=== PATIENT | female | born 1955 | race American Indian/Alaskan Native ===

== ENCOUNTER 2016-10-03 06:18 | Day surgery (SDC) | payer MEDICAID ==
[2016-10-03] MEDS ORDERED: WATER FOR IRRIG STERILE IR ONE (07:11)
--- NOTE | 2016-10-03 07:37 | Anesthesia Day of Surgery ---
Anesthesia Day of Surgery - Day of Surgery Patient Examined: Yes Patient H&P Reviewed: Yes Patient is NPO: Yes Beta Blockers: Yes
--- NOTE | 2016-10-03 07:39 | Anesthesia Consultation ---
Anesthesia Consult and Med Hx Date of service: 10/03/16 - Airway Anesthetic Teeth Evaluation: Good ROM Head & Neck: Adequate Mental/Hyoid Distance: Adequate Mallampati Class: Class I Intubation Access Assessment: Good - Pulmonary Exam CTA: Yes - Cardiac Exam Cardiac Exam: RRR - Pre-Operative Health Status ASA Pre-Surgery Classification: ASA3 Proposed Anesthetic Plan: MAC - Pulmonary Hx Smoking: Yes Hx Asthma: No COPD: No Hx Sleep Apnea: Yes (uses CPAP) - Cardiovascular System Hx Hypertension: Yes Hx Heart Attack/AMI: Yes (AUGUST 2006, no stents or invasive procedures) Hx Angina: No (denies) Hx Heart Murmur: No - Central Nervous System Hx Seizures: No Hx Back Pain: Yes Hx Psychiatric Problems: No - Gastrointestinal Hx Gastroesophageal Reflux Disease: Yes - Endocrine Hx Renal Disease: Yes (Stage 3/4, no dialysis) Hx Non-Insulin Dependent Diabetes: Yes Hx Hypothyroidism: Yes - Hematic Hx Anemia: No Hx Sickle Cell Disease: No - Other Systems Hx Alcohol Use: No Hx Substance Use: No Hx Cancer: No Hx Obesity: Yes - Additional Comments Anesthesia Medical History Comments: Gout
[2016-10-03] MEDS ORDERED: NACL 0.9% 1000 ML 1,000 ML IV SCH (08:00)
[2016-10-03] MEDS ORDERED: DIPRIVAN 10 MG/ML IV ONE ×2 (09:23)
[2016-10-03 10:35] VITALS: BP 169/65
--- NOTE | 2016-10-03 15:06 | Post Anesthesia Evaluation ---
- Post Anesthesia Evaluation Patient Participated: Yes Airway Patent: Yes Stable Respiratory Function: Yes Nausea/Vomiting: No Temp > 96.8F: Yes Pain Manageable: Yes Adequeate Hydration: Yes Anesthesia Complications: No
--- NOTE | 2016-10-03 22:33 | Operative Report ---
PREOPERATIVE DIAGNOSES: Dysphagia and epigastric abdominal pain. DESCRIPTION OF PROCEDURE: The patient was placed on the operating table in the dorsal supine position and following satisfactory induction of MAC anesthesia, she was then placed into the left lateral decubitus position and then the endoscope placed into the posterior oropharynx. Posterior oropharynx was intubated and the upper esophagus was passed as well as the mid esophagus and lower esophagus. Entry into the stomach was accomplished and after the mid stomach as well as the antrum were inspected and no abnormalities were seen. We then retroflexed the scope and then it was identified that the patient had a 2-3 cm type 1 sliding hiatal hernia. There were no other abnormalities and therefore, the stomach was desufflated. The scope was withdrawn. The patient tolerated the procedure well and was sent to recovery room in satisfactory condition. JOB# [id number] KYAW/CECI
== END 2016-10-03 06:19 | disposition home or self-care (01) ==
LOC: GIO 06:18
PROVIDERS: ATTEND Specialist
DX: K44.9 Diaphragmatic hernia without obstruction or gangrene (principal); K21.9 Gastro-esophageal reflux disease without esophagitis; E11.22 Type 2 diabetes mellitus with diabetic chronic kidney disease; I12.9 Hypertensive chronic kidney disease with stage 1 through stage 4 chronic kidney disease, or unspecified chronic kidney disease; N18.4 Chronic kidney disease, stage 4 (severe); E03.9 Hypothyroidism, unspecified; M10.9 Gout, unspecified; G47.33 Obstructive sleep apnea (adult) (pediatric); E78.00 Pure hypercholesterolemia, unspecified; M19.90 Unspecified osteoarthritis, unspecified site; E66.01 Morbid (severe) obesity due to excess calories; Z68.45 Body mass index [BMI] 70 or greater, adult; Z87.891 Personal history of nicotine dependence; Z88.0 Allergy status to penicillin; Z91.09 Other allergy status, other than to drugs and biological substances; Z88.8 Allergy status to other drugs, medicaments and biological substances; Z98.890 Other specified postprocedural states; Z90.710 Acquired absence of both cervix and uterus; Z79.899 Other long term (current) drug therapy; Z79.84 Long term (current) use of oral hypoglycemic drugs
CPT/HCPCS: 43235; 82962; J2704; J7030

== ENCOUNTER 2018-06-07 20:59 | Emergency (ER) | payer MEDICAID ==
--- NOTE | 2018-06-07 22:04 | Emergency Department Report ---
Blank Doc - Documentation Documentation: 62 y/o female with sore throat and voice lost since Sunday. Dry cough, diff iculties in swallowing. No fever.
--- NOTE | 2018-06-08 01:56 | Emergency Department Report ---
- General Chief Complaint: Sore Throat Stated Complaint: DIFFICULTY SWALLOWING/TALKING Time Seen by Provider: 06/08/18 01:20 Source: patient Mode of arrival: Ambulatory Limitations: No Limitations - History of Present Illness Initial Comments: Patient is a 62-year-old -[place] female with a history of hypertension and [id number] diabetes presents to the ED with complaint of acute onset of persistent nasal and sinus congestion, frontal sinus pressure and headache, sore throat or hoarseness and dysphonia, and dry cough, diffuse body aches for the last 4 days. Patient states that her [id number] Grandson has had similar symptoms in the last 1 week. Patient denies fever, chills, abdominal pain, chest pain, shortness of breath, dizziness, diarrhea, dysuria, urinary frequency and urgency or back pain. Patient states that she has been taking jglg-uvs-bomupob pain medications and decongestants with no relief. MD Complaint: cough, sore throat, rhinorrhea, nasal congestion, sinus pain -: Sudden, days(s) (4) Severity: moderate Severity scale (0 -10): 6 Quality: sharp, aching Consistency: constant Improves With: NSAID, OTC cold medicine Worsens With: nothing Context: sick contacts Associated Symptoms: fever, chills, myalgias, headache, rhinorrhea, nasal congestion, cough. denies: abdominal pain, nausea, diarrhea Treatments Prior to Arrival: "cold medicine" - Related Data Home Medications Medication Instructions Recorded Confirmed Last Taken Albuterol Sulfate 0.5 mg INHALATION PRN PRN 10/03/16 10/10/16 10/10/16 06:30 Allopurinol 300 mg PO DAILY 10/03/16 10/10/16 10/09/16 Calcitriol 0.25 mcg PO 3XW 10/03/16 10/10/16 10/09/16 Clonidine 0.1 mg PO 2XW 10/03/16 10/10/16 10/09/16 Cyclobenzaprine 10 mg PO BID 10/03/16 10/10/16 10/09/16 Folic Acid 1 mg PO DAILY 10/03/16 10/10/16 10/09/16 Furosemide 40 mg PO DAILY 10/03/16 10/10/16 10/09/16 Irbesartan 300 mg PO DAILY 10/03/16 10/10/16 10/09/16 Isosorbide Dinitrate 30 mg PO BID 10/03/16 10/10/16 10/09/16 Levothyroxine 50 mcg PO DAILY 10/03/16 10/10/16 10/09/16 Meclizine 12.5 mg PO PRN PRN 10/03/16 10/10/16 10/02/16 Nitrostat 0.3 mg SUBLINGUAL PRN PRN 10/03/16 10/10/16 Unknown Proventil 0.083% NEBS 90 mcg INHALATION BID 10/03/16 10/10/16 10/02/16 Vitamin C 500 mg PO DAILY 10/03/16 10/10/16 10/08/16 Vitamin D3 5,000 units PO DAILY 10/03/16 10/10/16 10/09/16 glipiZIDE ER 2.5 mg PO DAILY 10/03/16 10/10/16 10/09/16 Ferrous Sulfate [Feosol 325 MG tab] 1 tab PO QDAY 10/10/16 10/10/16 10/09/16 Atenolol 50 mg PO DAILY 10/11/16 10/11/16 Unknown Previous Rx's Medication Instructions Recorded Last Taken Type Azithromycin [Zithromax Z-SHIRA] 250 mg PO DAILY #6 tablet 06/08/18 Unknown Rx Benzonatate [Tessalon Perles] 100 mg PO Q8HR #30 capsule 06/08/18 Unknown Rx Cetirizine HCl [ZyrTEC] 10 mg PO DAILY #30 capsule 06/08/18 Unknown Rx Allergies Allergy/AdvReac Type Severity Reaction Status Date / Time adhesive Allergy Rash Verified 06/10/13 20:48 ibuprofen Allergy Unknown Verified 10/02/16 14:47 Penicillins Allergy Unknown Verified 06/10/13 20:48 prednisone Allergy PSYCHOTIC Verified 10/02/16 14:48 BEHAVIOR ED Review of Systems ROS: Stated complaint: DIFFICULTY SWALLOWING/TALKING Other details as noted in HPI Comment: All other systems reviewed and negative Constitutional: no symptoms reported, see HPI, chills, fever Eyes: as per HPI ENT: as per HPI, throat pain, congestion Respiratory: no symptoms reported, cough. denies: shortness of breath, SOB with exertion, SOB at rest, wheezing Cardiovascular: as per HPI. denies: chest pain, palpitations, dyspnea on exertion, syncope Endocrine: no symptoms reported, see HPI. denies: excessive sweating, intolerance to cold Gastrointestinal: as per HPI. denies: abdominal pain, nausea, diarrhea, hematochezia Genitourinary: as per HPI. denies: urgency, dysuria, frequency, abnormal menses Musculoskeletal: as per HPI, myalgia. denies: joint swelling, arthralgia Skin: as per HPI. denies: change in color, change in hair/nails, pruritus Neurological: as per HPI, headache. denies: paresthesias, confusion, abnormal gait, vertigo, other Psychiatric: as per HPI. denies: depression, auditory hallucinations, visual hallucinations Hematological/Lymphatic: as per HPI ED Past Medical Hx - Past Medical History Previous Medical History?: Yes Hx Hypertension: Yes Hx Heart Attack/AMI: Yes (2006) Hx Congestive Heart Failure: No Hx Diabetes: No Hx Deep Vein Thrombosis: No Hx Pulmonary Embolism: No Hx Renal Disease: Yes Hx Sickle Cell Disease: No Hx Arthritis: Yes Hx Seizures: No Hx Asthma: No Hx COPD: Yes Hx Tuberculosis: No Hx HIV: No Additional medical history: bronchitits, hypothyroid, gout, sleep apnea, & CAD - Surgical History Past Surgical History?: Yes Hx Coronary Stent: No Additional Surgical History: hysterectomy, D&C, right finger tendon repair, fatty tumor removed, ovaectomy, x2, tonsil, and catatracts bilateral - Social History Smoking Status: Former Smoker Substance Use Type: None - Medications Home Medications: Home Medications Medication Instructions Recorded Confirmed Last Taken Type Albuterol Sulfate 0.5 mg INHALATION PRN PRN 10/03/16 10/10/16 10/10/16 06:30 History Allopurinol 300 mg PO DAILY 10/03/16 10/10/16 10/09/16 History Calcitriol 0.25 mcg PO 3XW 10/03/16 10/10/16 10/09/16 History Clonidine 0.1 mg PO 2XW 10/03/16 10/10/16 10/09/16 History Cyclobenzaprine 10 mg PO BID 10/03/16 10/10/16 10/09/16 History Folic Acid 1 mg PO DAILY 10/03/16 10/10/16 10/09/16 History Furosemide 40 mg PO DAILY 10/03/16 10/10/16 10/09/16 History Irbesartan 300 mg PO DAILY 10/03/16 10/10/16 10/09/16 History Isosorbide Dinitrate 30 mg PO BID 10/03/16 10/10/16 10/09/16 History Levothyroxine 50 mcg PO DAILY 10/03/16 10/10/16 10/09/16 History Meclizine 12.5 mg PO PRN PRN 10/03/16 10/10/16 10/02/16 History Nitrostat 0.3 mg SUBLINGUAL PRN PRN 10/03/16 10/10/16 Unknown History Proventil 0.083% NEBS 90 mcg INHALATION BID 10/03/16 10/10/16 10/02/16 History Vitamin C 500 mg PO DAILY 10/03/16 10/10/16 10/08/16 History Vitamin D3 5,000 units PO DAILY 10/03/16 10/10/16 10/09/16 History glipiZIDE ER 2.5 mg PO DAILY 10/03/16 10/10/16 10/09/16 History Ferrous Sulfate [Feosol 325 MG tab] 1 tab PO QDAY 10/10/16 10/10/16 10/09/16 History Atenolol 50 mg PO DAILY 10/11/16 10/11/16 Unknown History Azithromycin [Zithromax Z-SHIRA] 250 mg PO DAILY #6 tablet 06/08/18 Unknown Rx Benzonatate [Tessalon Perles] 100 mg PO Q8HR #30 capsule 06/08/18 Unknown Rx Cetirizine HCl [ZyrTEC] 10 mg PO DAILY #30 capsule 06/08/18 Unknown Rx ED Physical Exam - General Limitations: No Limitations General appearance: alert, in no apparent distress - Head Head exam: Present: atraumatic, normocephalic, normal inspection - Eye Eye exam: Present: normal appearance, PERRL, EOMI Pupils: Present: normal accommodation - ENT ENT exam: Present: normal exam, normal orophraynx, TM's normal bilaterally, normal external ear exam - Neck Neck exam: Present: normal inspection, lymphadenopathy. Absent: tenderness - Respiratory Respiratory exam: Present: normal lung sounds bilaterally. Absent: respiratory distress, accessory muscle use, decreased breath sounds - Cardiovascular Cardiovascular Exam: Present: regular rate, normal rhythm, normal heart sounds. Absent: bradycardia - GI/Abdominal GI/Abdominal exam: Present: soft, normal bowel sounds, hyperactive bowel sounds. Absent: tenderness, guarding - Extremities Exam Extremities exam: Present: normal inspection, normal capillary refill - Back Exam Back exam: Present: normal inspection, full ROM. Absent: tenderness, CVA tenderness (L), paraspinal tenderness - Neurological Exam Neurological exam: Present: alert, oriented X3, CN II-XII intact, normal gait, reflexes normal - Psychiatric Psychiatric exam: Present: normal affect - Skin Skin exam: Present: warm, dry, intact, normal color ED Course Vital Signs 06/07/18 21:59 Temperature 98.1 F Pulse Rate 85 Respiratory 18 Rate Blood Pressure 125/80 O2 Sat by Pulse 96 Oximetry ED Medical Decision Making - Medical Decision Making Patient had presented to the ED with acute onset of persistent nasal and sinus congestion with sore throat and hoarseness as well as dry cough. Rapid strep test is negative, and patient vital signs are stable. The patient was discharged home on medications and advised to follow-up with her primary care physician E5 to 7 days for reevaluation. Patient also advised to return to the ED immediately if symptoms get worse. - Differential Diagnosis acute upper resp, Strep pharyngitis; bronchitis Critical care attestation.: If time is entered above; I have spent that time in minutes in the direct care of this critically ill patient, excluding procedure time. ED Disposition Clinical Impression: Acute upper respiratory infection Acute pharyngitis Qualifiers: Pharyngitis/tonsillitis etiology: unspecified etiology Qualified Code(s): J02.9 - Acute pharyngitis, unspecified Acute bronchitis Qualifiers: Bronchitis organism: unspecified organism Qualified Code(s): J20.9 - Acute bronchitis, unspecified Disposition: DC-01 TO HOME OR SELFCARE Is pt being admited?: No Does the pt Need Aspirin: No Condition: Stable Instructions: Acute Bronchitis (ED), Pharyngitis (ED), Upper Respiratory Inf ection (ED) Additional Instructions: Take medications with food, drink plenty of fluids and follow up with your Primary Care Physician as advised. Return to the ED immediately if symptoms get worse. Prescriptions: Benzonatate [Tessalon Perles] 100 mg PO Q8HR #30 capsule Azithromycin [Zithromax Z-SHIRA] 250 mg PO DAILY #6 tablet Cetirizine HCl [ZyrTEC] 10 mg PO DAILY #30 capsule Referrals: SUZANNA WILKES MD [Primary Care Provider] - 3-5 Days Forms: Accompanied Note, Work/School Release Form(ED)
[2018-06-08 03:10] VITALS: BP 185/65
== END 2018-06-08 02:10 | disposition home or self-care (01) ==
LOC: ED 20:59
DX: J06.9 Acute upper respiratory infection, unspecified (principal); J02.9 Acute pharyngitis, unspecified; J20.9 Acute bronchitis, unspecified; I10 Essential (primary) hypertension; M79.10 Myalgia, unspecified site; J44.9 Chronic obstructive pulmonary disease, unspecified; M19.90 Unspecified osteoarthritis, unspecified site; E03.9 Hypothyroidism, unspecified; M10.9 Gout, unspecified; G47.30 Sleep apnea, unspecified; Z90.710 Acquired absence of both cervix and uterus; Z87.891 Personal history of nicotine dependence; Z88.0 Allergy status to penicillin; Z88.5 Allergy status to narcotic agent
CPT/HCPCS: 87116; 87430; 99283